=== PATIENT | male | born 1965 | race Caucasian/White ===

== ENCOUNTER 2017-04-10 02:32 | Inpatient (IN) | payer OTHER ==
[~2017-04-10] VITALS: Ht 188 cm; Wt 88.9 kg
[2017-04-10 03:43] LABS: BASOPHILS % 0.4 % (0.0-2.0); EOSINOPHILS % 0.3 % (0.0-5.0); HEMATOCRIT. 41.5 % (42.0-52.0); HEMOGLOBIN. 13.4 g/dL (14.0-18.0); LYMPHOCYTES % 9.4 % (20.0-50.0); MEAN CORPUSCULAR HEMOGLOBIN 25.3 pg (28.0-32.0); MEAN CORPUSCULAR VOLUME 78.2 fL (80.0-94.0); MEAN PLATELET VOLUME 7.8 fl (7.4-10.4); MONOCYTES % 7.8 % (2.0-8.0); NEUTROPHILS % 82.1 % (40.0-76.0); PLATELET 311 x1000/uL (130-400); RED CELL DISTRIBUTION WIDTH 19.2 % (11.6-14.6)
[2017-04-10 03:59] LABS: CARBON DIOXIDE 28 mEq/L (21-32); CHLORIDE 96 mEq/L (98-107)
[2017-04-10] MEDS ORDERED: ASPIRIN 325MG TABLET PO ONE (06:15)
[2017-04-10] MEDS ORDERED: FUROSEMIDE 20MG/2ML VIAL IVP ONE (06:15)
[2017-04-10 06:28] LABS: CLARITY URINE CLOUDY (CLEAR); COLOR URINE DARK YELLOW (YELLOW); GLUCOSE URINE 2+ (NEGATIVE); KETONES URINE NEGATIVE (NEGATIVE); LEUKOCYTE ESTERASE URINE TRACE (NEGATIVE); NITRITE URINE NEGATIVE (NEGATIVE); OCCULT BLOOD URINE 1+ (NEGATIVE); PROTEIN URINE 3+ (NEGATIVE); SPECIFIC GRAVITY URINE 1.024 (1.005-1.030)
[2017-04-10 08:30] VITALS: BP_SYST 116; BP_DIAS 94; BP_DIAS 98
[2017-04-10] MEDS ORDERED: DEXTROSE 50% WATER 50ML SYRINGE IV PRN (09:15)
[2017-04-10 09:49] LABS: T4 FREE 1.97 ng/dL (0.76-1.46)
[2017-04-10] MEDS: CLOPIDOGREL 75MG TABLET PO SCH (10:19)
[2017-04-10 12:00] VITALS: BP 108/80
[2017-04-10] MEDS: BLOOD SUGAR DIAGNOSTIC STRIP TEST SCH ×3 (12:44→21:18)
[2017-04-10] MEDS: INSULIN LISPRO 100 UNITS/ML SUBCUT SCH ×3 (12:54→21:17)
[2017-04-10] MEDS ORDERED: HEPARIN 5000 UNITS/ML VIAL IV PRN (14:30)
[2017-04-10] MEDS ORDERED: HEPARIN 25,000 UNITS PREMIX 500 ML IV SCH (14:30)
[2017-04-10] MEDS ORDERED: HEPARIN 25,000 UNITS PREMIX 500 ML IV PRN (14:30)
[2017-04-10] MEDS ORDERED: HEPARIN 5000 UNITS/ML VIAL IV ONE (14:45)
[2017-04-10] MEDS ORDERED: ENOXAPARIN 40MG/0.4ML SYR SUBCUT SCH (15:00)
[2017-04-10] MEDS ORDERED: HEPARIN BOLUS PRN aPTT <30 IV (15:45)
[2017-04-10] MEDS ORDERED: HEPARIN BOLUS PRN aPTT 30-44 IV (15:45)
[2017-04-10] MEDS ORDERED: HEPARIN 60 UNITS/KG BOLUS IV SCH (15:45)
[2017-04-10 16:00] LABS: TROPONIN I 1.1 ng/mL (0.00-0.04)
[2017-04-10 16:02] LABS: INR 1.1; PARTIAL THROMBOPLASTIN TIME 26.6 sec (24.0-34.0); PROTHROMBIN TIME 11.8 sec
[2017-04-10] MEDS: HEPARIN 25,000 UNITS PREMIX 500 ML IV SCH (16:34)
[2017-04-10] MEDS ORDERED: ENOXAPARIN 100MG/ML SYR SUBCUT SCH (18:00)
[2017-04-10 18:34] LABS: CLARITY URINE CLEAR (CLEAR); COLOR URINE DARK YELLOW (YELLOW); GLUCOSE URINE 1+ (NEGATIVE); KETONES URINE NEGATIVE (NEGATIVE); LEUKOCYTE ESTERASE URINE 1+ (NEGATIVE); NITRITE URINE NEGATIVE (NEGATIVE); OCCULT BLOOD URINE 3+ (NEGATIVE); PROTEIN URINE 2+ (NEGATIVE); SPECIFIC GRAVITY URINE 1.018 (1.005-1.030)
[2017-04-10 20:00] VITALS: BP 119/98
[2017-04-10 21:00] LABS: BASOPHILS % 0.4 % (0.0-2.0); HEMATOCRIT. 46.3 % (42.0-52.0); HEMOGLOBIN. 14.9 g/dL (14.0-18.0); LYMPHOCYTES % 20.1 % (20.0-50.0); MEAN CORPUSCULAR HEMOGLOBIN 25.4 pg (28.0-32.0); MONOCYTES % 6.8 % (2.0-8.0); NEUTROPHILS % 71.7 % (40.0-76.0); PLATELET 388 x1000/uL (130-400); RED BLOOD CELL COUNT 5.86 mill/uL (4.7-6.1); RED CELL DISTRIBUTION WIDTH 19.5 % (11.6-14.6)
[2017-04-10] MEDS: CARVEDILOL 3.125 MG TABLET PO SCH (21:18)
[2017-04-10 23:25] LABS: CREATINE KINASE MB FRACTION 2.6 ng/mL (0.5-3.6)
[2017-04-10 23:55] LABS: TROPONIN I 1.2 ng/mL (0.00-0.04)
[2017-04-11] VITALS: BP 95/77
[2017-04-11 04:00] VITALS: BP 91/68
[2017-04-11] MEDS: BLOOD SUGAR DIAGNOSTIC STRIP TEST SCH ×4 (06:28→20:19)
[2017-04-11] MEDS: INSULIN LISPRO 100 UNITS/ML SUBCUT SCH ×4 (06:31→20:47)
[2017-04-11 07:43] LABS: CREATINE KINASE MB FRACTION 1.9 ng/mL (0.5-3.6)
[2017-04-11 08:00] VITALS: BP 102/71
[2017-04-11 08:06] LABS: TROPONIN I 1.2 ng/mL (0.00-0.04)
[2017-04-11] MEDS: CLOPIDOGREL 75MG TABLET PO SCH (08:11)
[2017-04-11] MEDS: ASPIRIN 81MG TABLET PO SCH (08:12)
[2017-04-11] MEDS: CARVEDILOL 3.125 MG TABLET PO SCH ×2 (08:12→20:19)
[2017-04-11] MEDS: LISINOPRIL 2.5MG TABLET PO SCH (11:15)
[2017-04-11 12:00] VITALS: BP 107/77
[2017-04-11] MEDS: HEPARIN 25,000 UNITS PREMIX 500 ML IV SCH (13:59)
[2017-04-11 16:22] VITALS: BP 106/63
[2017-04-11 20:00] VITALS: BP 101/85
[2017-04-11] MEDS ORDERED: WARFARIN SODIUM 7.5MG TABLET PO SCH (20:00)
[2017-04-11 23:10] LABS: BASOPHILS % 0.7 % (0.0-2.0); EOSINOPHILS % 0.6 % (0.0-5.0); HEMOGLOBIN. 14.7 g/dL (14.0-18.0); LYMPHOCYTES % 19.9 % (20.0-50.0); MEAN CORPUSCULAR HEMOGLOBIN 25.4 pg (28.0-32.0); MEAN CORPUSCULAR VOLUME 77.5 fL (80.0-94.0); MEAN PLATELET VOLUME 8.3 fl (7.4-10.4); MONOCYTES % 7.2 % (2.0-8.0); NEUTROPHILS % 71.6 % (40.0-76.0); PLATELET 337 x1000/uL (130-400); RED BLOOD CELL COUNT 5.81 mill/uL (4.7-6.1); RED CELL DISTRIBUTION WIDTH 19.9 % (11.6-14.6)
[2017-04-12] VITALS: BP 98/72
[2017-04-12 04:00] VITALS: BP 99/71
[2017-04-12] MEDS: BLOOD SUGAR DIAGNOSTIC STRIP TEST SCH ×4 (05:52→21:00)
[2017-04-12] MEDS: INSULIN LISPRO 100 UNITS/ML SUBCUT SCH ×4 (06:08→22:27)
[2017-04-12 06:55] LABS: INR 1.3; PARTIAL THROMBOPLASTIN TIME 59.1 sec (24.0-34.0); PROTHROMBIN TIME 13.5 sec
[2017-04-12 07:47] VITALS: BP 106/74
[2017-04-12] MEDS: CARVEDILOL 3.125 MG TABLET PO SCH ×2 (08:56→21:00)
[2017-04-12] MEDS: LISINOPRIL 2.5MG TABLET PO SCH (08:57)
[2017-04-12] MEDS: CLOPIDOGREL 75MG TABLET PO SCH (08:58)
[2017-04-12] MEDS: ASPIRIN 81MG TABLET PO SCH (08:58)
[2017-04-12] MEDS: HEPARIN 25,000 UNITS PREMIX 500 ML IV SCH (09:01)
[2017-04-12 12:00] VITALS: BP 103/73
[2017-04-12 16:00] VITALS: BP 110/84
[2017-04-12] MEDS ORDERED: WARFARIN SODIUM 7.5MG TABLET PO NR (18:00)
[2017-04-12 20:00] VITALS: BP 95/76
[2017-04-13] VITALS: BP 91/73
[2017-04-13] MEDS: HEPARIN 25,000 UNITS PREMIX 500 ML IV SCH (03:58)
[2017-04-13 04:00] VITALS: BP 96/72
[2017-04-13] MEDS: BLOOD SUGAR DIAGNOSTIC STRIP TEST SCH ×3 (06:33→17:10)
[2017-04-13] MEDS: INSULIN LISPRO 100 UNITS/ML SUBCUT SCH ×3 (06:34→18:47)
[2017-04-13 07:56] LABS: INR 2.4; PARTIAL THROMBOPLASTIN TIME 65.3 sec (24.0-34.0); PROTHROMBIN TIME 24.8 sec
[2017-04-13] MEDS: CARVEDILOL 3.125 MG TABLET PO SCH (08:22)
[2017-04-13] MEDS: ASPIRIN 81MG TABLET PO SCH (08:22)
[2017-04-13] MEDS: CLOPIDOGREL 75MG TABLET PO SCH (08:22)
[2017-04-13] MEDS: LISINOPRIL 2.5MG TABLET PO SCH (08:31)
[2017-04-13] MEDS ORDERED: ENOXAPARIN 80MG/0.8ML SYR SUBCUT SCH (10:00)
[2017-04-13 12:00] VITALS: BP 99/71
[2017-04-13] MEDS ORDERED: WARFARIN PER PHARMACY XX (12:12)
[2017-04-13] MEDS ORDERED: ASPI-1160 PO (12:12)
[2017-04-13] MEDS ORDERED: LISI2.5T47 PO (12:12)
[2017-04-13] MEDS ORDERED: CLOP75TA15 PO (12:13)
[2017-04-13] MEDS ORDERED: COR3 PO (12:13)
[2017-04-13 18:52] VITALS: BP 107/81
== END 2017-04-13 19:35 | disposition home or self-care (01) | DRG 291 ==
LOC: ER 04:24 → 8WST 06:20 → EDBEDREQ 06:49 → ENRESERV 07:21 → CANRESERV 07:21 → ENRESERV 07:34
PROVIDERS: ADMIT Family Medicine; ATTEND Family Medicine
DX: I13.0 Hypertensive heart and chronic kidney disease with heart failure and stage 1 through stage 4 chronic kidney disease, or unspecified chronic kidney disease (principal); E43 Unspecified severe protein-calorie malnutrition; E87.1 Hypo-osmolality and hyponatremia; N17.9 Acute kidney failure, unspecified; I50.30 Unspecified diastolic (congestive) heart failure; N18.9 Chronic kidney disease, unspecified; E11.22 Type 2 diabetes mellitus with diabetic chronic kidney disease; I42.9 Cardiomyopathy, unspecified; Z96.649 Presence of unspecified artificial hip joint; Z68.25 Body mass index [BMI] 25.0-25.9, adult; I51.3 Intracardiac thrombosis, not elsewhere classified
CPT/HCPCS: 36415; 71010; 76770; 78582; 80053; 80061; 81001; 82550; 82553; 82962; 83036; 83880; 84439; 84443; 84484; 85025; 85379; 85610; 85730; 93005; 93306; 93923; 93970; 96374; 97162; 99285; A9558; J1644; J1650; J1815; J1940

== ENCOUNTER 2017-05-02 00:20 | Inpatient (IN) | payer OTHER ==
[~2017-05-02] VITALS: Ht 185.4 cm; Wt 90.7 kg
[~2017-05-02 00:20] MED LIST: CLOP75TA15 PO; COR3 PO; LISI2.5T47 PO; WARFARIN PER PHARMACY XX
[2017-05-02] MEDS ORDERED: HYDROCODONE/ACETAMINOPHEN 5/325MG TABLET PO STA (00:39)
[2017-05-02] MEDS ORDERED: ASPIRIN 81MG TABLET PO ONE (00:45)
[2017-05-02] MEDS ORDERED: FUROSEMIDE 40MG/4ML VIAL IVP ONE (00:45)
[2017-05-02 01:07] LABS: HEMATOCRIT. 39.7 % (42.0-52.0); HEMOGLOBIN. 12.8 g/dL (14.0-18.0); MEAN CORPUSCULAR HEMOGLOBIN 25.1 pg (28.0-32.0); MEAN CORPUSCULAR VOLUME 77.7 fL (80.0-94.0); MEAN PLATELET VOLUME 9.5 fl (7.4-10.4); PLATELET 151 x1000/uL (130-400); RED BLOOD CELL COUNT 5.11 mill/uL (4.7-6.1); RED CELL DISTRIBUTION WIDTH 19.9 % (11.6-14.6)
[2017-05-02 01:16] LABS: CARBON DIOXIDE 29 mEq/L (21-32); CHLORIDE 84 mEq/L (98-107); ETHANOL BLOOD < 10 mg/dL; TROPONIN I 0.39 ng/mL (0.00-0.04)
[2017-05-02 01:18] LABS: PROTHROMBIN TIME 80.6 sec (9.4-11.6)
[2017-05-02 01:38] LABS: INR 7.7
[2017-05-02] MEDS ORDERED: CLOPIDOGREL 75MG TABLET PO SCH (02:15)
[2017-05-02] MEDS ORDERED: POTASSIUM BICARB/CIT ACID 25 MEQ TABLET.EFF PO SCH (02:15)
[2017-05-02] MEDS ORDERED: PHYTONADIONE 10MG/ML AMP IM SCH (02:15)
[2017-05-02 02:31] LABS: PLATELET ESTIMATE NORMAL
[2017-05-02] MEDS ORDERED: INSULIN REGULAR (HUMULIN R) 300UNITS/3ML IV SCH (05:15)
[2017-05-02] MEDS ORDERED: SODIUM CHLORIDE 0.9% 1,000 ML IV ONE (05:20)
[2017-05-02] MEDS ORDERED: LEVOFLOXACIN 750MG PREMIX 150 ML IV SCH (05:30)
[2017-05-02 06:30] VITALS: BP 92/64
[2017-05-02 07:57] VITALS: BP 82/49
[2017-05-02 08:00] VITALS: BP 80/51
[2017-05-02] MEDS ORDERED: FURO40TA5 PO (08:10)
[2017-05-02] MEDS ORDERED: DEXTROSE 50% WATER 50ML SYRINGE IV PRN ×2 (08:30→15:00)
[2017-05-02] MEDS ORDERED: WARFARIN SODIUM 2.5MG TABLET PO ONE (09:00)
[2017-05-02] MEDS ORDERED: POTASSIUM CHLORIDE 20MEQ TABLET SR PO SCH (09:00)
[2017-05-02] MEDS: SODIUM CHLORIDE 0.9% 1,000 ML IV SCH ×2 (09:19→20:28)
[2017-05-02 11:46] VITALS: BP 85/52
[2017-05-02] MEDS ORDERED: BLOOD SUGAR DIAGNOSTIC STRIP TEST SCH (12:40)
[2017-05-02] MEDS ORDERED: INSULIN LISPRO 100 UNITS/ML SUBCUT SCH (13:10)
[2017-05-02 16:00] VITALS: BP 87/65
[2017-05-02 16:33] LABS: HEMATOCRIT. 43.3 % (42.0-52.0); MEAN CORPUSCULAR HEMOGLOBIN 25.1 pg (28.0-32.0); MEAN CORPUSCULAR VOLUME 77.8 fL (80.0-94.0); MEAN PLATELET VOLUME 10.5 fl (7.4-10.4); PLATELET 87 x1000/uL (130-400); RED BLOOD CELL COUNT 5.57 mill/uL (4.7-6.1); RED CELL DISTRIBUTION WIDTH 20.2 % (11.6-14.6)
[2017-05-02 16:42] LABS: D-DIMER 1.3 mg/L FEU (<0.50)
[2017-05-02 16:47] LABS: PROTHROMBIN TIME 72.6 sec (9.4-11.6)
[2017-05-02 16:55] LABS: TROPONIN I 0.27 ng/mL (0.00-0.04)
[2017-05-02 16:56] LABS: T4 FREE 1.28 ng/dL (0.76-1.46)
[2017-05-02] MEDS: BLOOD SUGAR DIAGNOSTIC STRIP TEST SCH ×2 (17:18→20:28)
[2017-05-02 17:26] LABS: PLATELET ESTIMATE DECREASED
[2017-05-02] MEDS: INSULIN LISPRO 100 UNITS/ML SUBCUT SCH ×2 (17:49→21:04)
[2017-05-02 18:25] LABS: CLARITY URINE CLOUDY (CLEAR); COLOR URINE DARK YELLOW (YELLOW); GLUCOSE URINE 1+ (NEGATIVE); KETONES URINE NEGATIVE (NEGATIVE); LEUKOCYTE ESTERASE URINE 1+ (NEGATIVE); NITRITE URINE POSITIVE (NEGATIVE); OCCULT BLOOD URINE 3+ (NEGATIVE); PROTEIN URINE 1+ (NEGATIVE)
[2017-05-02 18:37] LABS: *AMPHETAMINES SCREEN URINE NEGATIVE (NEGATIVE); *BARBITURATES SCREEN URINE NEGATIVE (NEGATIVE); *BENZODIAZEPINES SCREEN URINE NEGATIVE (NEGATIVE); *COCAINE SCREEN URINE NEGATIVE (NEGATIVE); CANNABINOID URINE SCREEN NEGATIVE (NEGATIVE); METHADONE URINE SCREEN NEGATIVE (NEGATIVE); OPIATES URINE SCREEN NEGATIVE (NEGATIVE); PHENCYCLIDINE URINE SCREEN NEGATIVE (NEGATIVE)
[2017-05-02] MEDS: PIPERACILLIN/TAZ 3.375G PREMIX 50 ML IV SCH (20:28)
[2017-05-02 20:37] VITALS: BP 91/61
[2017-05-03] VITALS: BP 91/61
[2017-05-03 00:07] LABS: CREATINE KINASE 10 IU/L (39-308); CREATINE KINASE MB FRACTION < 0.5 ng/mL (0.5-3.6)
[2017-05-03] MEDS: PIPERACILLIN/TAZ 3.375G PREMIX 50 ML IV SCH ×2 (03:47→11:46)
[2017-05-03 04:00] VITALS: BP_SYST 85; BP_DIAS 56; BP_DIAS 86
[2017-05-03] MEDS: BLOOD SUGAR DIAGNOSTIC STRIP TEST SCH ×4 (05:39→21:53)
[2017-05-03 07:22] LABS: INR 1.7; PROTHROMBIN TIME 18.1 sec (9.4-11.6)
[2017-05-03 07:48] LABS: CREATINE KINASE 9 IU/L (39-308); CREATINE KINASE MB FRACTION < 0.5 ng/mL (0.5-3.6)
[2017-05-03] MEDS: INSULIN LISPRO 100 UNITS/ML SUBCUT SCH ×4 (07:55→21:58)
[2017-05-03] MEDS: SODIUM CHLORIDE 0.9% 1,000 ML IV SCH ×3 (07:55→22:00)
[2017-05-03 08:00] VITALS: BP 86/54
[2017-05-03 12:00] VITALS: BP 82/53
[2017-05-03] MEDS ORDERED: ACETAMINOPHEN 325MG TABLET PO PRN (12:00)
[2017-05-03] MEDS ORDERED: ONDANSETRON HCL 4MG/2ML VIAL IV PRN (12:00)
[2017-05-03] MEDS ORDERED: DIATR MEGLU/DIATRIZOATE SOLN 30ML PO SCH (14:15)
[2017-05-03 16:00] VITALS: BP 85/59
[2017-05-03] MEDS: CEFTRIAXONE 1 G PREMIX 50 ML IV SCH (16:15)
[2017-05-03] MEDS ORDERED: WARFARIN SODIUM 2.5MG TABLET PO SCH (18:00)
[2017-05-03 19:57] LABS: CLARITY URINE CLOUDY (CLEAR); COLOR URINE DARK YELLOW (YELLOW); GLUCOSE URINE 1+ (NEGATIVE); KETONES URINE NEGATIVE (NEGATIVE); LEUKOCYTE ESTERASE URINE TRACE (NEGATIVE); NITRITE URINE NEGATIVE (NEGATIVE); OCCULT BLOOD URINE 3+ (NEGATIVE); PROTEIN URINE 1+ (NEGATIVE); SPECIFIC GRAVITY URINE 1.022 (1.005-1.030)
[2017-05-03 20:00] VITALS: BP 93/73
[2017-05-04] VITALS: BP 108/62
[2017-05-04 04:00] VITALS: BP 96/66
[2017-05-04] MEDS: LOPERAMIDE HCL 2MG CAPSULE PO PRN (06:01)
[2017-05-04 06:39] LABS: INR 1.3; PROTHROMBIN TIME 13.8 sec (9.4-11.6)
[2017-05-04 06:41] LABS: HEMATOCRIT. 36.4 % (42.0-52.0); MEAN PLATELET VOLUME 12.5 fl (7.4-10.4); RED CELL DISTRIBUTION WIDTH 20.5 % (11.6-14.6)
[2017-05-04] MEDS: INSULIN LISPRO 100 UNITS/ML SUBCUT SCH ×4 (07:06→20:56)
[2017-05-04] MEDS: BLOOD SUGAR DIAGNOSTIC STRIP TEST SCH ×4 (07:06→20:37)
[2017-05-04 08:00] VITALS: BP 79/56
[2017-05-04] MEDS ORDERED: WARFARIN SODIUM 2.5MG TABLET PO ONE (09:00)
[2017-05-04] MEDS: CEFTRIAXONE 1 G PREMIX 50 ML IV SCH (09:11)
[2017-05-04] MEDS ORDERED: WARFARIN SODIUM 5MG TABLET PO SCH (09:30)
[2017-05-04] MEDS ORDERED: WARFARIN SODIUM 2MG TABLET PO SCH (09:30)
[2017-05-04] MEDS ORDERED: ENOXAPARIN 80MG/0.8ML SYR SUBCUT SCH (10:00)
[2017-05-04 10:11] LABS: PLATELET ESTIMATE DECREASED
[2017-05-04 10:14] LABS: PLATELET 59 x1000/uL (130-400)
[2017-05-04] MEDS: SODIUM CHLORIDE 0.9% 1,000 ML IV SCH ×2 (11:08→20:32)
[2017-05-04 12:00] VITALS: BP 95/70
[2017-05-04 16:00] VITALS: BP 91/64
[2017-05-04 17:43] LABS: T4 FREE 1.3 ng/dL (0.76-1.46)
[2017-05-04 18:00] LABS: FOLIC ACID (FOLATE) SERUM 5.3 ng/mL (>5.38)
[2017-05-04 20:00] VITALS: BP 99/63
[2017-05-05] VITALS: BP 91/61
[2017-05-05 04:00] VITALS: BP 90/60
[2017-05-05 06:03] LABS: INR 1.4; PROTHROMBIN TIME 14.7 sec (9.4-11.6)
[2017-05-05] MEDS: SODIUM CHLORIDE 0.9% 1,000 ML IV SCH ×3 (06:28→22:42)
[2017-05-05] MEDS: INSULIN LISPRO 100 UNITS/ML SUBCUT SCH ×4 (06:48→22:42)
[2017-05-05] MEDS: BLOOD SUGAR DIAGNOSTIC STRIP TEST SCH ×4 (06:48→22:43)
[2017-05-05 08:00] VITALS: BP 101/73
[2017-05-05] MEDS: CEFTRIAXONE 1 G PREMIX 50 ML IV SCH (08:30)
[2017-05-05 08:55] LABS: HEMATOCRIT 37.3 % (42.0-52.0); MEAN CORPUSCULAR VOLUME 77.8 fL (80.0-94.0); PLATELET 71 x1000/uL (130-400); RED CELL DISTRIBUTION WIDTH 20.6 % (11.6-14.6)
[2017-05-05 09:16] LABS: CARBON DIOXIDE 25 mEq/L (21-32); CHLORIDE 95 mEq/L (98-107)
[2017-05-05] MEDS: LOPERAMIDE HCL 2MG CAPSULE PO PRN (10:40)
[2017-05-05 12:00] VITALS: BP 96/76
[2017-05-05] MEDS ORDERED: POTASSIUM CHLORIDE 20MEQ TABLET SR PO SCH (13:00)
[2017-05-05 16:00] VITALS: BP 90/60
[2017-05-05] MEDS: ENOXAPARIN 80MG/0.8ML SYR SUBCUT SCH ×2 (17:43→22:43)
[2017-05-05] MEDS ORDERED: WARFARIN SODIUM 4MG TABLET PO NR (18:00)
[2017-05-05 20:00] VITALS: BP 84/57
[2017-05-06] VITALS: BP 94/61
[2017-05-06 04:00] VITALS: BP 86/54
[2017-05-06 07:02] LABS: PROTHROMBIN TIME 21.2 sec (9.4-11.6)
[2017-05-06 07:15] LABS: BASOPHILS % 0.1 % (0.0-2.0); EOSINOPHILS % 0.6 % (0.0-5.0); HEMATOCRIT. 34.8 % (42.0-52.0); HEMOGLOBIN. 11.4 g/dL (14.0-18.0); LYMPHOCYTES % 12.8 % (20.0-50.0); MEAN CORPUSCULAR VOLUME 76.5 fL (80.0-94.0); MEAN PLATELET VOLUME 10.3 fl (7.4-10.4); NEUTROPHILS % 75.5 % (40.0-76.0); PLATELET 119 x1000/uL (130-400); RED BLOOD CELL COUNT 4.55 mill/uL (4.7-6.1); RED CELL DISTRIBUTION WIDTH 20.4 % (11.6-14.6)
[2017-05-06 07:22] LABS: CARBON DIOXIDE 29 mEq/L (21-32); CHLORIDE 97 mEq/L (98-107)
[2017-05-06] MEDS: BLOOD SUGAR DIAGNOSTIC STRIP TEST SCH ×4 (07:40→21:44)
[2017-05-06 08:00] VITALS: BP 92/59
[2017-05-06] MEDS ORDERED: POTASSIUM CHLORIDE 20MEQ TABLET SR PO NR (08:00)
[2017-05-06] MEDS: INSULIN LISPRO 100 UNITS/ML SUBCUT SCH ×4 (08:10→21:52)
[2017-05-06] MEDS: ENOXAPARIN 80MG/0.8ML SYR SUBCUT SCH (08:35)
[2017-05-06] MEDS: CEFTRIAXONE 1 G PREMIX 50 ML IV SCH (10:02)
[2017-05-06] MEDS: LOPERAMIDE HCL 2MG CAPSULE PO PRN (10:29)
[2017-05-06 12:00] VITALS: BP 92/66
[2017-05-06] MEDS: SODIUM CHLORIDE 0.9% 1,000 ML IV SCH ×2 (13:29→21:42)
[2017-05-06 15:29] VITALS: BP 112/75
[2017-05-06] MEDS ORDERED: WARFARIN SODIUM 1MG TABLET PO NR (18:00)
[2017-05-06 20:00] VITALS: BP 100/71
[2017-05-07] VITALS (8 sets, daily range): BP systolic 92–126; BP diastolic 62–80
[2017-05-07] MEDS: SODIUM CHLORIDE 0.9% 1,000 ML IV SCH ×2 (07:11→15:10)
[2017-05-07] MEDS: BLOOD SUGAR DIAGNOSTIC STRIP TEST SCH ×4 (07:13→20:25)
[2017-05-07] MEDS: INSULIN LISPRO 100 UNITS/ML SUBCUT SCH ×4 (07:13→20:54)
[2017-05-07 07:28] LABS: INR 2.5; PROTHROMBIN TIME 26.2 sec (9.4-11.6)
[2017-05-07] MEDS: LOPERAMIDE HCL 2MG CAPSULE PO PRN (08:55)
[2017-05-07] MEDS: CEFTRIAXONE 1 G PREMIX 50 ML IV SCH ×3 (10:08→23:07)
[2017-05-07] MEDS ORDERED: IOHEXOL-300 100 ML BOTTLE ONE (11:40)
[2017-05-07] MEDS ORDERED: LIDOCAINE HCL 1% 20ML VIAL (Pyxis) INJ ONE (11:40)
[2017-05-07] MEDS ORDERED: IODIXANOL 320MG/ML 100 ML BOTTLE IV ONE ×2 (11:43→13:36)
[2017-05-07] MEDS ORDERED: HEPARIN SODIUM 1,000 UNIT/1ML VIAL IV ONE ×2 (12:18→13:27)
[2017-05-07] MEDS ORDERED: MIDAZOLAM HCL 2 MG/2 ML VIAL ONE (12:18)
[2017-05-07] MEDS ORDERED: FENTANYL CITRATE/PF 50MCG/ML 2ML VIAL ONE (12:18)
[2017-05-07] MEDS ORDERED: ATROPINE SULFATE 0.1MG/ML 10ML DISP.SYRIN ONE (12:20)
[2017-05-07] MEDS ORDERED: DILTIAZEM HCL 5MG/ML 5ML VIAL IV ONE (13:17)
[2017-05-07] MEDS ORDERED: IOVERSOL 240MG/ML 100ML BOTTLE IV ONE (13:46)
[2017-05-07] MEDS ORDERED: ATROPINE SULFATE 1MG/10ML SYR IV PRN (14:00)
[2017-05-08] VITALS (11 sets, daily range): BP systolic 82–118; BP diastolic 57–88
[2017-05-08] MEDS: BLOOD SUGAR DIAGNOSTIC STRIP TEST SCH ×4 (06:08→21:00)
[2017-05-08] MEDS: LOPERAMIDE HCL 2MG CAPSULE PO PRN (06:08)
[2017-05-08] MEDS: INSULIN LISPRO 100 UNITS/ML SUBCUT SCH ×4 (06:15→20:59)
[2017-05-08 07:57] LABS: BASOPHILS % 0.3 % (0.0-2.0); EOSINOPHILS % 0.5 % (0.0-5.0); HEMATOCRIT. 36.7 % (42.0-52.0); HEMOGLOBIN. 11.8 g/dL (14.0-18.0); INR 2.6; LYMPHOCYTES % 11.5 % (20.0-50.0); MEAN CORPUSCULAR HEMOGLOBIN 24.7 pg (28.0-32.0); MEAN CORPUSCULAR VOLUME 76.9 fL (80.0-94.0); MEAN PLATELET VOLUME 9.3 fl (7.4-10.4); MONOCYTES % 6.5 % (2.0-8.0); NEUTROPHILS % 81.2 % (40.0-76.0); PLATELET 212 x1000/uL (130-400); PROTHROMBIN TIME 27.2 sec (9.4-11.6); RED BLOOD CELL COUNT 4.77 mill/uL (4.7-6.1); RED CELL DISTRIBUTION WIDTH 20.2 % (11.6-14.6)
[2017-05-08 08:29] LABS: CARBON DIOXIDE 26 mEq/L (21-32); CHLORIDE 96 mEq/L (98-107)
[2017-05-08] MEDS: FUROSEMIDE 40MG TABLET PO SCH (09:38)
[2017-05-08] MEDS: CEFTRIAXONE 1 G PREMIX 50 ML IV SCH (09:38)
[2017-05-08] MEDS ORDERED: WARFARIN SODIUM 1MG TABLET PO SCH (18:00)
[2017-05-08] MEDS: LOSARTAN POTASSIUM 50 MG TABLET PO SCH (18:00)
[2017-05-08] MEDS: CARVEDILOL 3.125 MG TABLET PO SCH (18:46)
[2017-05-08 19:39] LABS: CREATINE KINASE 38 IU/L (39-308)
[2017-05-09] VITALS (12 sets, daily range): BP systolic 93–104; BP diastolic 62–76
[2017-05-09] MEDS: BLOOD SUGAR DIAGNOSTIC STRIP TEST SCH ×4 (06:12→21:09)
[2017-05-09 07:32] LABS: INR 2.8; PROTHROMBIN TIME 29.4 sec (9.4-11.6)
[2017-05-09] MEDS: INSULIN LISPRO 100 UNITS/ML SUBCUT SCH ×4 (08:16→21:10)
[2017-05-09] MEDS: FUROSEMIDE 40MG TABLET PO SCH (08:17)
[2017-05-09] MEDS: CARVEDILOL 3.125 MG TABLET PO SCH (08:17)
[2017-05-09] MEDS: FOLIC ACID 1MG TABLET PO SCH (08:17)
[2017-05-09] MEDS: CEFTRIAXONE 1 G PREMIX 50 ML IV SCH (08:17)
[2017-05-09] MEDS: LOSARTAN POTASSIUM 50 MG TABLET PO SCH (08:18)
[2017-05-09] MEDS: LOPERAMIDE HCL 2MG CAPSULE PO PRN (10:26)
[2017-05-09 20:24] LABS: BASOPHILS % 0.5 % (0.0-2.0); EOSINOPHILS % 0.7 % (0.0-5.0); HEMOGLOBIN. 11.6 g/dL (14.0-18.0); LYMPHOCYTES % 15.4 % (20.0-50.0); MEAN CORPUSCULAR HEMOGLOBIN 24.9 pg (28.0-32.0); MEAN CORPUSCULAR VOLUME 77.6 fL (80.0-94.0); MONOCYTES % 7.6 % (2.0-8.0); NEUTROPHILS % 75.8 % (40.0-76.0); PLATELET 271 x1000/uL (130-400); RED BLOOD CELL COUNT 4.64 mill/uL (4.7-6.1); RED CELL DISTRIBUTION WIDTH 20.1 % (11.6-14.6)
[2017-05-09 20:34] LABS: CARBON DIOXIDE 30 mEq/L (21-32); CHLORIDE 96 mEq/L (98-107)
[2017-05-10] VITALS (12 sets, daily range): BP systolic 90–110; BP diastolic 61–77
[2017-05-10] MEDS: BLOOD SUGAR DIAGNOSTIC STRIP TEST SCH ×4 (06:26→21:37)
[2017-05-10 07:18] LABS: INR 2.6; PROTHROMBIN TIME 26.6 sec (9.4-11.6)
[2017-05-10] MEDS: INSULIN LISPRO 100 UNITS/ML SUBCUT SCH ×4 (07:20→21:45)
[2017-05-10] MEDS: FOLIC ACID 1MG TABLET PO SCH (08:54)
[2017-05-10] MEDS: FUROSEMIDE 40MG TABLET PO SCH (08:54)
[2017-05-10] MEDS: LOSARTAN POTASSIUM 25 MG TABLET PO SCH (08:54)
[2017-05-10] MEDS: CEFTRIAXONE 1 G PREMIX 50 ML IV SCH (08:54)
[2017-05-10] MEDS: CARVEDILOL 3.125 MG TABLET PO SCH ×2 (09:00→10:12)
[2017-05-11] VITALS (9 sets, daily range): BP systolic 95–115; BP diastolic 68–79
[2017-05-11 05:56] LABS: INR 2.4; PARTIAL THROMBOPLASTIN TIME 37.8 sec (23.4-31.0); PROTHROMBIN TIME 24.8 sec (9.4-11.6)
[2017-05-11] MEDS: BLOOD SUGAR DIAGNOSTIC STRIP TEST SCH ×2 (07:15→11:50)
[2017-05-11] MEDS: INSULIN LISPRO 100 UNITS/ML SUBCUT SCH ×2 (07:15→12:11)
[2017-05-11] MEDS: LOSARTAN POTASSIUM 25 MG TABLET PO SCH (09:00)
[2017-05-11] MEDS: FOLIC ACID 1MG TABLET PO SCH (09:02)
[2017-05-11] MEDS: FUROSEMIDE 40MG TABLET PO SCH (09:02)
[2017-05-11] MEDS: CARVEDILOL 3.125 MG TABLET PO SCH (09:02)
[2017-05-11 09:11] LABS: IMMUNOGLOBULIN A 223 mg/dL (90-386); IMMUNOGLOBULIN G 898 mg/dL (700-1600); IMMUNOGLOBULIN M 395 mg/dL (20-172); MYOGLOBIN SERUM 32 ng/mL (28-72)
[2017-05-11 11:20] LABS: BASOPHILS % 1.5 % (0.0-2.0); EOSINOPHILS % 0.7 % (0.0-5.0); HEMATOCRIT. 34.4 % (42.0-52.0); LYMPHOCYTES % 21.6 % (20.0-50.0); MEAN CORPUSCULAR HEMOGLOBIN 24.9 pg (28.0-32.0); MEAN PLATELET VOLUME 8.9 fl (7.4-10.4); MONOCYTES % 7.2 % (2.0-8.0); PLATELET 293 x1000/uL (130-400); RED BLOOD CELL COUNT 4.41 mill/uL (4.7-6.1); RED CELL DISTRIBUTION WIDTH 20.5 % (11.6-14.6)
[2017-05-11 11:36] LABS: CARBON DIOXIDE 30 mEq/L (21-32); CHLORIDE 95 mEq/L (98-107); PHOSPHORUS 3.4 mg/dL (2.5-4.9)
[2017-05-11 13:09] LABS: ALDOLASE 6.4 U/L (3.3-10.3); ANTI-MYELOPEROXIDASE AB < 9.0 U/mL (0.0-9.0); ANTI-PROTEINASE 3 ABS < 3.5 U/mL (0.0-3.5)
[2017-05-11] MEDS ORDERED: MAGNESIUM 2 G PREMIX 50 ML IV SCH (15:00)
[2017-05-11 15:07] LABS: ATYPICAL P-ANCA <1:20 titer (Neg:<1:20); CYTOPLASMIC C-ANCA <1:20 titer (Neg:<1:20); PERINUCLEAR P-ANCA <1:20 titer (Neg:<1:20)
[2017-05-11] MEDS ORDERED: CEFTRIAXONE 1 G PREMIX 50 ML IV SCH (16:00)
[2017-05-11 17:12] LABS: ANTI-DNA DOUBLE STRANDED QUANT < 1 IU/mL (0-9)
[2017-05-11] MEDS ORDERED: WARFARIN SODIUM 2MG TABLET PO SCH (18:00)
[2017-05-11 19:12] LABS: ANA IFA Negative (.)
[2017-05-12 12:14] LABS: ANGIOTENSION CONVERTING ENZYME 53 U/L (14-82)
== END 2017-05-11 17:09 | DRG 853 ==
LOC: ER 00:20 → 7WST 02:20 → INTOOBSV 02:20 → OBSVTOIN 02:20 → ENRESERV 03:50 → 3WST 05-07 14:35
PROVIDERS: ADMIT Family Medicine; ATTEND Family Medicine
PROC: 02703ZZ Dilation of Coronary Artery, One Artery, Percutaneous Approach (ICD-10-PCS; principal; 2017-05-07)
PROC: 4A023N7 Measurement of Cardiac Sampling and Pressure, Left Heart, Percutaneous Approach (ICD-10-PCS; 2017-05-07)
PROC: B2111ZZ Fluoroscopy of Multiple Coronary Arteries using Low Osmolar Contrast (ICD-10-PCS; 2017-05-07)
PROC: B2151ZZ Fluoroscopy of Left Heart using Low Osmolar Contrast (ICD-10-PCS; 2017-05-07)
DX: A41.51 Sepsis due to Escherichia coli [E. coli] (principal); I21.4 Non-ST elevation (NSTEMI) myocardial infarction; E43 Unspecified severe protein-calorie malnutrition; I50.23 Acute on chronic systolic (congestive) heart failure; N17.9 Acute kidney failure, unspecified; M30.1 Polyarteritis with lung involvement [Churg-Strauss]; I42.8 Other cardiomyopathies; E87.1 Hypo-osmolality and hyponatremia; E85.9 Amyloidosis, unspecified; I13.0 Hypertensive heart and chronic kidney disease with heart failure and stage 1 through stage 4 chronic kidney disease, or unspecified chronic kidney disease; I48.92 Unspecified atrial flutter; M33.20 Polymyositis, organ involvement unspecified; R17 Unspecified jaundice; N18.9 Chronic kidney disease, unspecified; D63.8 Anemia in other chronic diseases classified elsewhere; E87.6 Hypokalemia; I25.82 Chronic total occlusion of coronary artery; D86.9 Sarcoidosis, unspecified; E11.22 Type 2 diabetes mellitus with diabetic chronic kidney disease; E21.3 Hyperparathyroidism, unspecified; E53.8 Deficiency of other specified B group vitamins; E11.42 Type 2 diabetes mellitus with diabetic polyneuropathy; I25.10 Atherosclerotic heart disease of native coronary artery without angina pectoris; Z79.01 Long term (current) use of anticoagulants; I27.2 Other secondary pulmonary hypertension; M06.9 Rheumatoid arthritis, unspecified; M32.9 Systemic lupus erythematosus, unspecified; M47.816 Spondylosis without myelopathy or radiculopathy, lumbar region; M47.812 Spondylosis without myelopathy or radiculopathy, cervical region; M48.02 Spinal stenosis, cervical region; Z96.642 Presence of left artificial hip joint; I51.3 Intracardiac thrombosis, not elsewhere classified; I07.1 Rheumatic tricuspid insufficiency; Z68.26 Body mass index [BMI] 26.0-26.9, adult
CPT/HCPCS: 36415; 70450; 71010; 72141; 72146; 72148; 74176; 80048; 80053; 80061; 80305; 81001; 82085; 82164; 82330; 82542; 82550; 82553; 82607; 82746; 82784; 82962; 83036; 83516; 83520; 83605; 83690; 83735; 83880; 83970; 84100; 84134; 84439; 84443; 84481; 84484; 85025; 85027; 85347; 85379; 85384; 85610; 85651; 85730; 86022; 86225; 86235; 86256; 86334; 86431; 87015; 87040; 87045; 87077; 87086; 87186; 87427; 87449; 87493; 92943; 93005; 93306; 93458; 93970; 96365; 96375; 97110; 97116; 97162; 97164; 97166; 97530; 99291; C1725; C1769; C1887; C1893; G0482; J0461; J0696; J1644; J1650; J1815; J1940; J1956; J2250; J2543; J3010; J3430; J3475; J3490; J7030; J7040; J7050; Q9963; Q9967